=== PATIENT | male | born 1960 | race Caucasian/White ===

== ENCOUNTER 2021-08-02 00:36 | Emergency (ER) | payer MEDICARE ==
[~2021-08-02] VITALS: Ht 182.9 cm; Wt 108.9 kg
--- NOTE | 2021-08-02 00:43 | NUR ---
RECEIVED IN BED 8 BIBA WITH C/O HYPOGLYCEMIA. BG WAS 59 WHEN MEDICS ARRIVED ON SCENE. D10 WAS GIVEN, BG 82 AFTER. UPON ARRIVAL BG WAS 117. PT IS SLIGHTLY CONFUSED TO PLACE, FOLLOWS COMMANDS, ATTACHED TO CM = SR WITHOUT ECTOPY. DR. SHORT AT BEDSIDE FOR EXAM
[2021-08-02] MEDS ORDERED: DEXTROSE 50% 50 ML SYR IVP ONE (00:45)
[2021-08-02] MEDS ORDERED: NALOXONE PFS 2 MG/2 ML SYR IVP ONE (00:45)
[2021-08-02 00:58] VITALS: BP 116/85
--- NOTE | 2021-08-02 01:30 | NUR ---
THRASHING AROUND IN BED, WILL NOT HOLD STILL AND IS UNCOOPERATIVE. WOULD NOT HOLD STILL FOR FIRST ATTEMPT AT CT.
[2021-08-02 01:50] LABS: BASOPHILS # (AUTO) 0.1 K/uL (0.00-0.22); BASOPHILS % (AUTO) 0.6 % (0.0-2.0); EOSINOPHILS % (AUTO) 0.2 % (0.0-4.0); HEMATOCRIT 45.1 % (36-52); HEMOGLOBIN 15.1 g/dL (12.0-18.0); LYMPHOCYTES # (AUTO) 1.2 K/uL (2.0-11.5); LYMPHOCYTES % (AUTO) 8.5 % (20.5-51.1); MEAN CORPUSCULAR HEMOGLOBIN 30 pg (27-31); MEAN CORPUSCULAR HGB CONC 34 g/dL (33-37); MEAN CORPUSCULAR VOLUME 90.1 fL (80-94); MONOCYTES # (AUTO) 1.2 K/uL (0.8-1.0); MONOCYTES % (AUTO) 8.8 % (1.7-9.3); NEUTROPHILS # (AUTO) 11.3 K/uL (1.8-7.7); NEUTROPHILS % (AUTO) 81.9 % (42.2-75.2); PLATELET COUNT (AUTO) 100 K/uL (140-450); RED CELL DISTRIBUTION WIDTH 15.6 % (11.6-13.7); WHITE BLOOD COUNT (AUTO) 13.8 K/uL (4.8-10.8)
[2021-08-02] MEDS ORDERED: diphenhydrAMINE 50 MG/ML VIAL IVP ONE (02:00)
[2021-08-02] MEDS ORDERED: LORazepam 2 MG/ML VIAL IVP ONE (02:00)
[2021-08-02] MEDS ORDERED: diphenhydrAMINE 50 MG/ML VIAL ONE (02:00)
[2021-08-02 02:10] LABS: ACETAMINOPHEN 1.7 ug/ml (10-30); ALBUMIN 2.4 g/dL (3.4-5.0); ANION GAP 13.7 (8-16); ASPARTATE AMINOTRANSFERASE 190 U/L (15-37); CARBON DIOXIDE 26.7 mmol/L (21-32); CHLORIDE 103 mmol/L (98-107); CREATININE 2.2 mg/dL (0.6-1.3); GFR ARICAN-AMERICAN 39 mL/min (>90); GLUCOSE 100 mg/dL (74-106); POTASSIUM 4.4 mmol/L (3.5-5.1); SODIUM SERUM 139 mmol/L (136-145); TOTAL BILIRUBIN 4.8 mg/dL (0.0-1.0); UREA NITROGEN, BLOOD 43 mg/dL (7-18)
--- NOTE | 2021-08-02 02:30 | NUR ---
PT MORE CALM AT THIS TIME AFTER 1 MG ATIVAN AND BENADRYL. RT AT BEDSIDE.
[2021-08-02 02:36] LABS: CKMB RELATIVE INDEX 2.2 (0.0-2.5)
[2021-08-02 02:37] LABS: SALICYLATE < 2.8 mg/dL (2.8-20.0)
[2021-08-02 02:40] VITALS: BP 96/57
--- NOTE | 2021-08-02 02:40 | NUR ---
PLACED ON BI-PAP
[2021-08-02 03:00] VITALS: BP 96/57
[2021-08-02] MEDS ORDERED: AZITHROMYCIN 500 MG in DEXTROSE 5% 250 ML IV ONE (03:05)
--- NOTE | 2021-08-02 03:16 | NUR ---
0240 PLACED PT ON BIPAP DUE TO SOB. PT ON IPAP14 EPAP 6 RR12 FIO2 100%. ABG DRAWN SEE RESULTS. WILL TITRATE FIO2 SATS 92% AT THIS TIME ON 100% FIO2.
[2021-08-02] MEDS ORDERED: KETAMINE 500 MG/5 ML VIAL ONE (03:33)
--- NOTE | 2021-08-02 03:52 | NUR ---
CODE BLUE CALLED, CPR BEGUN. SEE CODE BLUE RECORD
[2021-08-02] MEDS ORDERED: DOPPLER MC ONE ×2 (03:54→04:05)
--- NOTE | 2021-08-02 04:06 | NUR ---
ATTEMPTED TO CALL PT AT [phone] AND [phone] LISTED ON PT CONTACTS. NO ANSWER AT THIS TIME.
--- NOTE | 2021-08-02 04:09 | NUR ---
ATTEMPTED TO CALL PT AT [phone] AND [phone] LISTED ON PT CONTACTS. NO ANSWER AT THIS TIME.
[2021-08-02] MEDS ORDERED: EPINEPHrine PFS 0.1 MG/ML SYR IVP ONE (04:11)
--- NOTE | 2021-08-02 04:12 | NUR ---
ATTEMPT TO CALL X 10, NO ANSWER
--- NOTE | 2021-08-02 04:25 | NUR ---
CODE CALLED. TIME OF 0424
--- NOTE | 2021-08-02 04:32 | NUR ---
0352 CPR STARTED ON PATIENT. PT WAS INTUBATED WITH 8.0 TUBE AT 26 LIP. ACLS DRUGS GIVEN. PT 0425
--- NOTE | 2021-08-02 04:46 | NUR ---
Called [facility] and sw with Bob Monson to give report of pt . sts that is not eligible for organ donation. #[phone]
--- NOTE | 2021-08-02 04:51 | NUR ---
called [employer] and sw Sheriff Vega to give report of , she sts she will relay information to care technician for a call back to us.
--- NOTE | 2021-08-02 05:27 | NUR ---
PER MEGAN, NO MORTUARY INFORMATION AT THIS TIME. STATED SHE WILL CALL BACK WITH THE INFORMATION SOON SHE HAS IT
[2021-08-02] MEDS ORDERED: MIDAZOLAM 2 MG/2 ML VIAL IVP ONE (06:20)
--- NOTE | 2021-08-02 07:32 | NUR ---
Report and continuation of care received from ANIKET Espinoza.
--- NOTE | 2021-08-02 08:05 | NUR ---
[employer] [place] case #: [id number] recontacted; states to release body to us.
--- NOTE | 2021-08-02 08:22 | NUR ---
Spoke with ; requesting [facility]. Advised coroners released body to us where we will move patient to different location.
--- NOTE | 2021-08-02 08:22 | NUR ---
states will contact [facility] for arrangements.
--- NOTE | 2021-08-02 12:00 | NUR ---
TALKED TO KERRY MORATAYA, TALKED TO EUNICE, SHE SAID FAMILY HAS NOT CONTACTED THEM
--- NOTE | 2021-08-02 12:10 | NUR ---
LEAVE MESSAGE TO MEGAN [phone], [phone] , REGARDING MORTUARY, NO ANSWER , WILL FOLLOW UP
--- NOTE | 2021-08-02 14:15 | NUR ---
LEAVE MESSAGE AGAIN TO , TO CALL US BACK REGARDING THE MORTUARY.
--- NOTE | 2021-08-02 18:28 | NUR ---
CALL PLACE AGAIN TO MEGAN NO ANSWER
== END 2021-08-02 04:25 ==
LOC: MED 00:36
DX: U07.1 COVID-19 (principal); I46.9 Cardiac arrest, cause unspecified; J12.89 Other viral pneumonia; J96.01 Acute respiratory failure with hypoxia; R41.82 Altered mental status, unspecified; E11.9 Type 2 diabetes mellitus without complications; Z86.73 Personal history of transient ischemic attack (TIA), and cerebral infarction without residual deficits; Z95.0 Presence of cardiac pacemaker
CPT/HCPCS: 36415; 36600; 71045; 80053; 80162; 82140; 82550; 82553; 82803; 83605; 84484; 85025; 87040; 87426; 93005; 96374; 96375; 99285; G0480; G0482; J1200; J2060; J2310; Q0092; J0171